=== PATIENT | male | born 1995 | race African-American/Black ===

== ENCOUNTER 2017-12-22 16:29 | Emergency (ER) | payer OTHER ==
[~2017-12-22] VITALS: Ht 175.3 cm; Wt 70.3 kg
[~2017-12-22 16:29] MED LIST: CLEOCIN HCL150 MG PO; NAPROSYN500 MG PO
== END 2017-12-22 18:23 ==
LOC: ER 16:29
DX: S01.111A Laceration without foreign body of right eyelid and periocular area, initial encounter (principal); S83.91XA Sprain of unspecified site of right knee, initial encounter; F17.210 Nicotine dependence, cigarettes, uncomplicated; Z88.0 Allergy status to penicillin; Z88.1 Allergy status to other antibiotic agents; Z88.2 Allergy status to sulfonamides; W18.09XA Striking against other object with subsequent fall, initial encounter; Y93.89 Activity, other specified; Y92.89 Other specified places as the place of occurrence of the external cause; Y99.8 Other external cause status